=== PATIENT | male | born 1975 | race Caucasian/White ===

== ENCOUNTER 2019-04-28 19:21 | Inpatient (IN) | payer OTHER ==
[~2019-04-28] VITALS: Ht 180.3 cm; Wt 89.5 kg
[~2019-04-28 19:21] MED LIST: ALBU90OI INH; AMOCLA875 PO; AZIT250 PO; Amoxil400 MG/5 M PO; CEPH500 PO; DOXY100 PO; HYDACE5 PO; Monodox100 MG PO; OXYACE5T PO; PROM25 PO; SULTRIDS PO; Ultram50 MG PO; Vibramycin100 MG PO
[2019-04-28 20:29] LABS: BASOPHILS ABSOLUTE AUTO 0.02 K/mm3 (0.00-0.23); BASOPHILS PERCENT AUTO 0 % (0-2); EOSINOPHILS ABSOLUTE AUTO 0.02 K/mm3 (0.00-0.68); EOSINOPHILS PERCENT AUTO 0 % (0-6); Hematocrit 39.5 % (37.0-53.0); Hemoglobin 13.4 g/dL (13.5-17.5); IMMATURE GRAN ABSOLUTE AUTO 0.01 K/mm3 (0.00-0.10); IMMATURE GRAN PERCENT AUTO 0 % (0-1); LYMPHOCYTES ABSOLUTE AUTO 1.23 K/mm3 (0.84-5.20); LYMPHOCYTES PERCENT AUTO 17 % (21-46); MONOCYTES ABSOLUTE AUTO 0.62 K/mm3 (0.16-1.47); MONOCYTES PERCENT AUTO 9 % (4-13); Mean Corpuscular HGB 29.8 pg (26.0-34.0); Mean Corpuscular HGB Conc 33.9 g/dL (31.5-36.5); Mean Corpuscular Volume 88 fL (80-100); Mean Platelet Volume 9.7 fL (9.1-12.4); NEUTROPHILS ABSOLUTE AUTO 5.25 K/mm3 (1.96-9.15); NEUTROPHILS PERCENT AUTO 73 % (41-73); Platelet Count 367 K/mm3 (150-400); RDW Coefficient Variation 11.5 % (11.7-14.2); White Blood Cell Count 7.15 K/mm3 (4.00-11.30)
[2019-04-28 20:36] LABS: Source, Urine Clean Catch
[2019-04-28 20:39] LABS: Bilirubin, Urine Neg (Neg); Blood, Urine Neg (Neg); Glucose Qualitative, Urine Neg (Neg); Ketones, Urine Neg (Neg); Leukocyte Esterase, Urine Neg (Neg); Nitrite, Urine Neg (Neg); Protein, Urine Neg (Neg); Specific Gravity, Urine 1.005 (1.003-1.022); Urobilinogen, Urine NORM (Normal); pH, Urine 6.5 (5.0-8.0)
[2019-04-28 20:41] LABS: Appearance, Urine Clear (Clear); Color, Urine Yellow (P-Yellow)
[2019-04-28 20:45] LABS: Alanine Aminotransfer (ALT/SGP 20 U/L (12-78); Albumin, Blood 3.3 g/dL (3.4-5.0); Albumin/Globulin Ratio 0.8 (0.8-1.8); Alk Phos 67 U/L (50-136); Anion Gap 6 mmol/L (6-16); Aspartate Aminotrans (AST/SGOT 21 U/L (12-37); Bilirubin, Total 0.4 mg/dL (0.1-1.0); Blood Urea Nitrogen 5 mg/dL (8-24); Bun/Creatinine Ratio 5.5 (12.0-20.0); CO2, Blood 30 mmol/L (21-32); Calcium, Blood 8.5 mg/dL (8.5-10.1); Chloride, Blood 102 mmol/L (98-108); Creatinine, Blood 0.91 mg/dL (0.60-1.20); Globulin, Blood 4.4 g/dL (2.2-4.0); Glomerular Filtration Rate >60 (60-); Glucose, Blood 88 mg/dL (70-99); Potassium, Blood 3.4 mmol/L (3.5-5.5); Sodium, Blood 138 mmol/L (136-145); Total Protein, Blood 7.7 g/dL (6.4-8.2)
[2019-04-29 02:36] LABS: Automated CSF RBC Count 0.011 M/mm3 (0-0); Automated CSF WBC Count 0.551 K/mm3 (0-5); RBC Count, CSF 11000 /mm3 (0-0); WBC Count, CSF 551 /mm3 (0-5)
[2019-04-29 02:40] LABS: Appearance, CSF Clear (Clear); Color, CSF No Color (No Color)
[2019-04-29 02:41] LABS: RBC Count, CSF 108 /mm3 (0-0); WBC Count, CSF 453 /mm3 (0-5)
[2019-04-29 02:42] LABS: Appearance, CSF Cloudy (Clear); Color, CSF Red (No Color)
[2019-04-29 02:47] LABS: Glucose, CSF 52 mg/dL (40-70)
[2019-04-29 03:15] LABS: Lymphocytes, CSF 80 % (40-80); Monocytes, CSF 5 % (15-45); Neutrophils, CSF 15 % (0-6)
[2019-04-29 03:16] LABS: Lymphocytes, CSF 73 % (40-80); Monocytes, CSF 14 % (15-45); Neutrophils, CSF 13 % (0-6)
[2019-04-29 03:47] LABS: Enterovirus Detected (NOT DETECT); Escherichia Coli K1 Not Detected (NOT DETECT); Haemophilus Influenza Not Detected (NOT DETECT); Listeria Monocytogenes Not Detected (NOT DETECT); Neisseria Meningitidis Not Detected (NOT DETECT); Streptococcus Agalactiae Not Detected (NOT DETECT); Streptococcus Pneumoniae Not Detected (NOT DETECT)
[2019-04-29 03:48] LABS: Cryptococcus Neoformans/Gattii Not Detected (NOT DETECT); Herpes Simplex Virus 1 Not Detected (NOT DETECT); Herpes Simplex Virus 2 Not Detected (NOT DETECT); Human Herpesvirus 6 Not Detected (NOT DETECT); Human Parechovirus Not Detected (NOT DETECT); Varicella Zoster Virus Not Detected (NOT DETECT)
[2019-04-29 05:33] LABS: Hematocrit 34.7 % (37.0-53.0); Hemoglobin 11.6 g/dL (13.5-17.5); Mean Corpuscular HGB 30.1 pg (26.0-34.0); Mean Corpuscular HGB Conc 33.4 g/dL (31.5-36.5); Mean Corpuscular Volume 90 fL (80-100); Mean Platelet Volume 9.3 fL (9.1-12.4); Platelet Count 300 K/mm3 (150-400); RDW Coefficient Variation 11.6 % (11.7-14.2); RDW Standard Deviation 37.5 fL (35.1-46.3); Red Blood Cell Count 3.86 M/mm3 (4.30-5.90); White Blood Cell Count 7.38 K/mm3 (4.00-11.30)
[2019-04-29 05:59] LABS: Alanine Aminotransfer (ALT/SGP 17 U/L (12-78); Albumin, Blood 2.9 g/dL (3.4-5.0); Albumin/Globulin Ratio 0.8 (0.8-1.8); Alk Phos 56 U/L (50-136); Anion Gap 6 mmol/L (6-16); Aspartate Aminotrans (AST/SGOT 15 U/L (12-37); Bilirubin, Total 0.3 mg/dL (0.1-1.0); Blood Urea Nitrogen 6 mg/dL (8-24); Bun/Creatinine Ratio 6.2 (12.0-20.0); CO2, Blood 29 mmol/L (21-32); Calcium, Blood 7.8 mg/dL (8.5-10.1); Chloride, Blood 102 mmol/L (98-108); Creatinine, Blood 0.97 mg/dL (0.60-1.20); Globulin, Blood 3.6 g/dL (2.2-4.0); Glomerular Filtration Rate >60 (60-); Glucose, Blood 103 mg/dL (70-99); Potassium, Blood 3.4 mmol/L (3.5-5.5); Sodium, Blood 137 mmol/L (136-145); Total Protein, Blood 6.5 g/dL (6.4-8.2)
--- NOTE | 2019-04-29 06:09 | NUR ---
SHIFT SUMMARY: PATIENT ARRIVED TO THE ROOM VIA GURNEY. TRANSFERRED SELF TO THE BED. CAME INTO THE HOSPITAL DUE TO SEVERE PAIN OF THE HEAD AND NECK WITH MOVEMENT, NAUSEA AND VOMITING. WAS DX WITH ENTEROVIRUS OF THE SPINE. HE WAS ACCOUMPIED BY HIS GIRLFRIEND. STATES HIS PAIN WAS 10/10 ALL OVER HIS HEAD. HE WAS CRYING AND MOANING IN PAIN. GAVE HIM FENTANYL AND POTASSIUM. JUST I STARTED TO GIVE TORDOL, HE STARTED TO VOMIT, HAD 200 EMESIS OUT ALONG WITH THE POTASSIUM. FINISHED TORDOL, IV FLUIDS, ZOFRAN, AND VANCO. HE LAID DOWN IN BED WITH HIS GIRLFRIEND AND STARTED TO REST. ADMISSION ASSESSMENT WAS COMPLETED, SEE CHART FOR MORE INFORMATION. IV PATENT AND INFUSING WITH NO PROBLEMS.CALL LIGHT IN REACH. WILL REPORT TO DAY SHIFT RN.
--- NOTE | 2019-04-29 19:18 | NUR ---
SHIFT SUMMARY: NO ACUTE CHANGES TO REPORT THIS SHIFT. PT A&O; IRRITABLE; COOPERATIVE WITH CARE. MEDICATED FOR PAIN & NAUSEA PER EMAR. IV REHYDRATION & ABX CONTINUING. REPROT GIVEN TO ONCOMING RN.
[2019-04-30 04:41] LABS: BASOPHILS ABSOLUTE AUTO 0.01 K/mm3 (0.00-0.23); BASOPHILS PERCENT AUTO 0 % (0-2); EOSINOPHILS ABSOLUTE AUTO 0.03 K/mm3 (0.00-0.68); EOSINOPHILS PERCENT AUTO 1 % (0-6); Hematocrit 35.3 % (37.0-53.0); Hemoglobin 11.7 g/dL (13.5-17.5); IMMATURE GRAN ABSOLUTE AUTO 0.02 K/mm3 (0.00-0.10); IMMATURE GRAN PERCENT AUTO 0 % (0-1); LYMPHOCYTES ABSOLUTE AUTO 1.25 K/mm3 (0.84-5.20); LYMPHOCYTES PERCENT AUTO 20 % (21-46); MONOCYTES PERCENT AUTO 8 % (4-13); Mean Corpuscular HGB 29.8 pg (26.0-34.0); Mean Corpuscular HGB Conc 33.1 g/dL (31.5-36.5); Mean Corpuscular Volume 90 fL (80-100); Mean Platelet Volume 9.4 fL (9.1-12.4); NEUTROPHILS ABSOLUTE AUTO 4.35 K/mm3 (1.96-9.15); NEUTROPHILS PERCENT AUTO 71 % (41-73); Platelet Count 271 K/mm3 (150-400); RDW Coefficient Variation 11.4 % (11.7-14.2); RDW Standard Deviation 37.2 fL (35.1-46.3); Red Blood Cell Count 3.92 M/mm3 (4.30-5.90); White Blood Cell Count 6.16 K/mm3 (4.00-11.30)
[2019-04-30 04:58] LABS: Alanine Aminotransfer (ALT/SGP 15 U/L (12-78); Albumin, Blood 2.8 g/dL (3.4-5.0); Albumin/Globulin Ratio 0.7 (0.8-1.8); Alk Phos 52 U/L (50-136); Anion Gap 2 mmol/L (6-16); Aspartate Aminotrans (AST/SGOT 18 U/L (12-37); Bilirubin, Total 0.3 mg/dL (0.1-1.0); Blood Urea Nitrogen 8 mg/dL (8-24); Bun/Creatinine Ratio 8.4 (12.0-20.0); CO2, Blood 31 mmol/L (21-32); Calcium, Blood 8.2 mg/dL (8.5-10.1); Chloride, Blood 103 mmol/L (98-108); Creatinine, Blood 0.96 mg/dL (0.60-1.20); Globulin, Blood 3.8 g/dL (2.2-4.0); Glomerular Filtration Rate >60 (60-); Glucose, Blood 115 mg/dL (70-99); Potassium, Blood 3.9 mmol/L (3.5-5.5); Sodium, Blood 136 mmol/L (136-145); Total Protein, Blood 6.6 g/dL (6.4-8.2); Vancomycin, Trough 8.9 ug/mL (5.0-10.0)
--- NOTE | 2019-04-30 05:57 | NUR ---
SHIFT SUMMARY PT SLEPT FAIR DURING THE NIGHT. SIG OTHER REMAINED WITH PT T/O NIGHT. PT STATES HE DID NOT SLEEP AT ALL, BUT HAS BEEN SLEEPING WHEN ROUNDED ON. PT MEDICATED WITH TYLENOL, FENTANYL, AND TORADOL DURING THE NIGHT FOR HEADACHE. ALSO HAS FEVER THIS AM. WILL RECHECK TEMP, TORADOL WAS GIVEN. PT IRRITABLE AND CRYING WHEN IS WOKEN UP THIS AM. WILL CONTINUE TO MONITOR.
[2019-04-30] MEDS ORDERED: ACET325 PO (11:08)
[2019-04-30] MEDS ORDERED: ACYC800 PO (11:09)
[2019-04-30] MEDS ORDERED: Amoxicillin500 MG PO (11:11)
[2019-04-30] MEDS ORDERED: IBUP800 PO (11:11)
[2019-04-30] MEDS ORDERED: Culturelle1 CAP PO (11:12)
[2019-04-30] MEDS ORDERED: Nicoderm Cq1 EAC1 TOP (11:13)
[2019-04-30] MEDS ORDERED: ONDA4ODT MM (11:13)
[2019-04-30 17:58] LABS: U Amphetamine Screen DETECTED; U Barbituate Screen Not Detected; U Benzodiazapine Screen Not Detected; U Buprenorphine Screen Not Detected; U Cannabinoids Screen DETECTED; U Cocaine Screen Not Detected; U Methadone Screen Not Detected; U Methamphetamine Screen Not Detected; U Opiates Screen Not Detected; U Oxycodone Screen Not Detected; U Phencyclidine Screen Not Detected; U Propoxyphene Screen Not Detected
--- NOTE | 2019-04-30 19:34 | NUR ---
SHIFT SUMMARY: NO ACUTE CHANGES TO REPORT THIS SHIFT. PT A&O; OCC IRRITABILITY R/T HEADACHE R/T VIRAL MENINGITIS. MEDICATED FOR PAIN PER EMAR. PT INDEPENDENT IN ROOM. IV ABX CONTINUING. REPORT GIVEN TO ONCOMING RN.
[2019-04-30 23:36] LABS: Adenovirus Not Detected (NOT DETECT); Bordetella pertussis Not Detected (NOT DETECT); Chlamydophila pneumoniae Not Detected (NOT DETECT); Coronavirus 229E Not Detected (NOT DETECT); Coronavirus HKU1 Not Detected (NOT DETECT); Coronavirus NL63 Not Detected (NOT DETECT); Coronavirus OC43 Not Detected (NOT DETECT); Human Metapneumovirus Not Detected (NOT DETECT); Human Rhinovirus/Enterovirus Not Detected (NOT DETECT); Influenza A Not Detected (NOT DETECT); Influenza A/2009-H1 Not Detected (NOT DETECT); Influenza A/H1 Not Detected (NOT DETECT); Influenza A/H3 Not Detected (NOT DETECT); Influenza B Not Detected (NOT DETECT); Mycoplasma pneumoniae Not Detected (NOT DETECT); Parainfluenza Virus 1 Not Detected (NOT DETECT); Parainfluenza Virus 2 Not Detected (NOT DETECT); Parainfluenza Virus 3 Not Detected (NOT DETECT); Parainfluenza Virus 4 Not Detected (NOT DETECT); Respiratory Syncytial Virus Not Detected (NOT DETECT)
--- NOTE | 2019-05-01 06:06 | NUR ---
SHIFT SUMMARY LYING IN SEMI FOWLERS WITH EYES CLOSED. HAS HAD A GOOD NIGHT. SHOWERED AT START OF SHIFT. DENIES PAIN OR DISCOMFORT. HAS HAD NO FEVER THIS SHIFT. STATES ROMELIA HE IS LOOKING FORWARD TO BEING D/C'D SINCE IT IS HIS DAUGHTERS BIRTHDAY TODAY. DENIES FURTHER NEEDS AT THIS TIE. SAFETY MEASURES IN PLACE. WILL GIVE HAND OFF TO ONCOMING SHIFT USING SBAR.
[2019-05-01 08:25] LABS: BASOPHILS ABSOLUTE AUTO 0.02 K/mm3 (0.00-0.23); BASOPHILS PERCENT AUTO 0 % (0-2); EOSINOPHILS ABSOLUTE AUTO 0.08 K/mm3 (0.00-0.68); EOSINOPHILS PERCENT AUTO 1 % (0-6); Hematocrit 38.7 % (37.0-53.0); IMMATURE GRAN ABSOLUTE AUTO 0.01 K/mm3 (0.00-0.10); IMMATURE GRAN PERCENT AUTO 0 % (0-1); LYMPHOCYTES ABSOLUTE AUTO 1.61 K/mm3 (0.84-5.20); LYMPHOCYTES PERCENT AUTO 28 % (21-46); MONOCYTES ABSOLUTE AUTO 0.49 K/mm3 (0.16-1.47); MONOCYTES PERCENT AUTO 9 % (4-13); Mean Corpuscular HGB 29.6 pg (26.0-34.0); Mean Corpuscular HGB Conc 33.6 g/dL (31.5-36.5); Mean Corpuscular Volume 88 fL (80-100); Mean Platelet Volume 9.5 fL (9.1-12.4); NEUTROPHILS ABSOLUTE AUTO 3.46 K/mm3 (1.96-9.15); NEUTROPHILS PERCENT AUTO 61 % (41-73); Platelet Count 324 K/mm3 (150-400); RDW Coefficient Variation 11.5 % (11.7-14.2); RDW Standard Deviation 37.1 fL (35.1-46.3); Red Blood Cell Count 4.39 M/mm3 (4.30-5.90); White Blood Cell Count 5.67 K/mm3 (4.00-11.30)
[2019-05-01 09:06] LABS: Anion Gap 3 mmol/L (6-16); Blood Urea Nitrogen 11 mg/dL (8-24); CO2, Blood 33 mmol/L (21-32); Calcium, Blood 8.6 mg/dL (8.5-10.1); Chloride, Blood 104 mmol/L (98-108); Glomerular Filtration Rate >60 (60-); Glucose, Blood 103 mg/dL (70-99); Sodium, Blood 140 mmol/L (136-145)
[2019-05-01] MEDS ORDERED: MELA3 PO (10:53)
--- NOTE | 2019-05-01 12:20 | NUR ---
PATIENT IS ALERT AND ORIENTED AND COOPERATIVE WITH CARE. THERE IS ORDERS TO DISCHARGE TODAY. ALL DISCHARGE PAPERWORK IS COMPLETE AND GIVEN TO THE PATIENT. THE PATIENT IS NOW WAITING FOR A FRIEND TO BRING HIM CLOTHES TO LEAVE IN. THERE IS A FRIENDS AT THE BEDSIDE WITH THE PATIENT. NO COMPLAINTS OF PAIN, N/V OR FEVER. IV HAS BEEN DC'D. WILL CONTINUE TO MONITOR UNTIL PATIENT IS DISCHARGED.
--- NOTE | 2019-05-01 13:14 | NUR ---
PATIENT IS DISCHARGED. IV HAS BEEN REMOVED. SCRUBS WERE PROVIDED TO THE PATIENT TO WEAR HOME. THE PATIENT IS ACCOMPANIED BY A FRIEND WHO WILL DRIVE HIM HOME.
== END 2019-05-01 13:16 | disposition home or self-care (01) | DRG 76 ==
LOC: ER 19:21 → MEDS 19:22 → ER 04-29 04:51 → MEDS 04-29 04:53 → ENPENDDIS 05-01 10:28 → MEDS 05-01 13:16
PROVIDERS: Emergency Medicine; Family Medicine; ADMIT Internal Medicine
PROC: 009U3ZX Drainage of Spinal Canal, Percutaneous Approach, Diagnostic (ICD-10-PCS; principal; 2019-04-28)
DX: A87.0 Enteroviral meningitis (principal); E87.6 Hypokalemia; G47.00 Insomnia, unspecified; F17.210 Nicotine dependence, cigarettes, uncomplicated; Z59.0 Homelessness
CPT/HCPCS: 0099U; 36415; 62270; 70450; 71046; 80048; 80053; 80202; 81003; 82945; 83605; 84157; 85025; 85027; 87040; 87070; 87205; 87483; 89051; 96365-59; 96367-59; 96375-59; 96376-59; 99285-25; A9270; J0133; J0696; J1170; J1650; J1885; J2405; J3010; J3370; J7030; J7050; J7060; J8499

== ENCOUNTER 2021-07-25 18:15 | Emergency (ER) | payer OTHER ==
[~2021-07-25] VITALS: Ht 180.3 cm; Wt 86.2 kg
[~2021-07-25 18:15] MED LIST changes: +ACET325 PO; +ACYC800 PO; +Amoxicillin500 MG PO; +Culturelle1 CAP PO; +IBUP800 PO; +MELA3 PO; +Nicoderm Cq1 EAC1 TOP; +ONDA4ODT MM
[2021-07-25] MEDS ORDERED: ACET500 PO (21:06)
[2021-07-25] MEDS ORDERED: Amoxicillin500 MG PO (21:06)
[2021-07-25] MEDS ORDERED: IBUP600 PO (21:06)
== END 2021-07-25 21:15 | disposition home or self-care (01) ==
LOC: ER 18:15
DX: K02.9 Dental caries, unspecified (principal); L03.116 Cellulitis of left lower limb; F17.200 Nicotine dependence, unspecified, uncomplicated
CPT/HCPCS: 36415; 99282; A9270

== ENCOUNTER 2021-08-24 13:14 | Emergency (ER) | payer OTHER ==
[~2021-08-24] VITALS: Ht 180.3 cm; Wt 90.7 kg
[~2021-08-24 13:14] MED LIST changes: +ACET500 PO; +IBUP600 PO
[2021-08-24 13:45] LABS: BASOPHILS ABSOLUTE AUTO 0.03 K/mm3 (0.00-0.23); BASOPHILS PERCENT AUTO 0 % (0-2); EOSINOPHILS ABSOLUTE AUTO 0.12 K/mm3 (0.00-0.68); EOSINOPHILS PERCENT AUTO 2 % (0-6); Hematocrit 39.9 % (37.0-53.0); Hemoglobin 13.7 g/dL (13.5-17.5); IMMATURE GRAN ABSOLUTE AUTO 0.02 K/mm3 (0.00-0.10); IMMATURE GRAN PERCENT AUTO 0 % (0-1); LYMPHOCYTES ABSOLUTE AUTO 1.74 K/mm3 (0.84-5.20); LYMPHOCYTES PERCENT AUTO 23 % (21-46); MONOCYTES ABSOLUTE AUTO 0.77 K/mm3 (0.16-1.47); MONOCYTES PERCENT AUTO 10 % (4-13); Mean Corpuscular HGB 29.9 pg (26.0-34.0); Mean Corpuscular HGB Conc 34.3 g/dL (31.5-36.5); Mean Corpuscular Volume 87 fL (80-100); Mean Platelet Volume 9.5 fL (9.1-12.4); NEUTROPHILS ABSOLUTE AUTO 4.92 K/mm3 (1.96-9.15); NEUTROPHILS PERCENT AUTO 65 % (41-73); Platelet Count 366 K/mm3 (150-400); RDW Coefficient Variation 11.7 % (11.7-14.2); RDW Standard Deviation 37.6 fL (35.1-46.3); Red Blood Cell Count 4.58 M/mm3 (4.30-5.90)
[2021-08-24 14:03] LABS: Anion Gap 6 mmol/L (6-16); Blood Urea Nitrogen 15 mg/dL (8-24); Bun/Creatinine Ratio 15.8 (12.0-20.0); CO2, Blood 28 mmol/L (21-32); Chloride, Blood 104 mmol/L (98-108); Creatinine, Blood 0.95 mg/dL (0.60-1.20); Glomerular Filtration Rate >60 (60-); Glucose, Blood 118 mg/dL (70-99); Potassium, Blood 4.2 mmol/L (3.5-5.5); Sodium, Blood 138 mmol/L (136-145)
[2021-08-24] MEDS ORDERED: Ultram50 MG PO (15:48)
[2021-08-24] MEDS ORDERED: Cleocin HCl300 MG PO (15:48)
== END 2021-08-24 16:27 | disposition home or self-care (01) ==
LOC: ER 13:14
PROVIDERS: Physician Assistant
DX: K04.7 Periapical abscess without sinus (principal); Z79.899 Other long term (current) drug therapy; F17.210 Nicotine dependence, cigarettes, uncomplicated
CPT/HCPCS: 36415; 80048; 85025; 96365; 96375; 99283-25; J1885; J2405; J7030

== ENCOUNTER 2024-01-01 20:18 | Emergency (ER) | payer OTHER ==
[~2024-01-01] VITALS: Ht 180.3 cm; Wt 90.7 kg
[~2024-01-01 20:18] MED LIST changes: +Cleocin HCl300 MG PO
[2024-01-01 20:48] VITALS: BP 151/93
[2024-01-01] MEDS ORDERED: CEPH500 PO (22:48)
[2024-01-01] MEDS ORDERED: Cephalexin Monohydrate 500 MG Cap PO ONE (22:50)
[2024-01-01] MEDS ORDERED: Acetaminophen 500 MG Tab PO ONE (22:50)
== END 2024-01-01 23:22 | disposition home or self-care (01) ==
LOC: ER 20:18
DX: S89.91XA Unspecified injury of right lower leg, initial encounter (principal); L03.115 Cellulitis of right lower limb; V19.9XXA Pedal cyclist (driver) (passenger) injured in unspecified traffic accident, initial encounter; Z79.2 Long term (current) use of antibiotics
CPT/HCPCS: 93971; A9270